=== PATIENT | female | born 1965 | race Hispanic/Latino ===

== ENCOUNTER 2018-06-07 21:34 | Emergency (ER) | payer OTHER ==
[2018-06-08 00:01] LABS: Absolute Lymphocytes (CBC) 3.8 K/uL (0.7-4.9); Absolute Monocytes 0.6 K/uL (0.1-1.3); Basophils % 0.9 % (0-1.3); Eosinophils % 1.1 % (0-4.4); Hematocrit 39.1 % (36.0-45.0); Lymphocytes % 43.9 % (15.3-44.8); MCH 29.2 pg (27.0-35.0); MCV 86.3 fL (80-100); MPV 9.1 fL (7.6-11.3); Monocytes % 7.4 % (3.3-12.3); RBC Red Blood Cell Count 4.52 M/uL (3.86-4.86)
[2018-06-08] MEDS ORDERED: LORAZEPAM 1 MG TABLET ONE (00:07)
[2018-06-08] MEDS ORDERED: ACETAMINOPHEN 500 MG TAB ONE (00:08)
[2018-06-08] MEDS ORDERED: METOCLOPRAMIDE 10 MG/2mL INJ ONE (00:08)
[2018-06-08] MEDS ORDERED: NA CHLORIDE 0.9% 1,000 ML ONE (00:08)
[2018-06-08 00:18] LABS: ALT/SGPT 22 U/L (12-78); AST/SGOT 14 U/L (15-37); Albumin 3.7 g/dL (3.4-5.0); Alkaline Phosphatase 80 U/L (45-117); BUN Blood Urea Nitrogen 12 mg/dL (7-18); Bicarbonate 27 mmol/L (21-32); Bilirubin Direct < 0.1 mg/dL (0-0.2); Bilirubin Total 0.2 mg/dL (0.2-1.0); Glucose Level 111 mg/dL (74-106); Lipase 107 U/L (73-393); Potassium 3.4 mmol/L (3.5-5.1); Protein, Total 7.3 g/dL (6.4-8.2); Sodium Level 141 mmol/L (136-145)
--- NOTE | 2018-06-08 00:43 | ER ---
Nurse's Notes [facility] Name: Sharon Tobias Age: 52 yrs Sex: Female : 1965 Arrival Date: 06/07/2018 Time: 21:37 Bed 4 Private MD: Adrien Hightower B Diagnosis: Elevated blood-pressure reading, without diagnosis of hypertension Presentation: 06/07 21:58 Presenting complaint: Patient states: Lightheadedness all day long, reports that she aj1 took her blood pressure earlier today and it was 165/100, so she took her blood pressure a little later and it was still high. Reports that she has been feeling a lot of pressure in her head and in the back of her neck. Transition of care: patient was not received from another setting of care. Onset of symptoms was June 07, 2018. Risk Assessment: Do you want to hurt yourself or someone else? Patient reports no desire to harm self or others. Initial Sepsis Screen: Does the patient meet any 2 criteria? No. Patient's initial sepsis screen is negative. Does the patient have a suspected source of infection? No. Patient's initial sepsis screen is negative. Care prior to arrival: None. 21:58 Method Of Arrival: Ambulatory aj 21:58 Acuity: EJ 3 aj1 Triage Assessment: 22:01 General: Appears in no apparent distress. comfortable, Behavior is calm, cooperative, aj1 appropriate for age. Pain: Complains of pain in scalp and neck Pain currently is 2 out of 10 on a pain scale. Neuro: Level of Consciousness is awake, alert, obeys commands, Oriented to person, place, time, situation, Gait is steady, Speech is normal, Facial symmetry appears normal, Reports dizziness, headache. Cardiovascular: Patient's skin is warm and dry. Respiratory: Airway is patent Respiratory effort is even, unlabored, Respiratory pattern is regular, symmetrical. 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 - Social history:: Smoking status: Patient/guardian denies using tobacco, Patient/guardian denies using alcohol, street drugs, The patient lives with family. - Ebola Screening: : Patient denies travel to an Ebola-affected area in the 21 days before illness onset. - Family history:: not pertinent. Screenin:26 Abuse screen: Denies threats or abuse. Nutritional screening: No deficits noted. bb Tuberculosis screening: No symptoms or risk factors identified. Fall Risk None identified. Assessment: 23:26 General: Appears in no apparent distress. well groomed, Behavior is calm, cooperative. bb Neuro: Level of Consciousness is awake, alert, obeys commands, Oriented to person, place, time, situation. Cardiovascular: Reports since high blood pressure and headache with palpitations Heart tones S1 S2 present Capillary refill < 3 seconds Patient's skin is warm and dry. Pulses are all present. Edema is absent. Respiratory: Airway is patent Respiratory effort is even, unlabored, Respiratory pattern is regular, Breath sounds are clear bilaterally. GI: No deficits noted. No signs and/or symptoms were reported involving the gastrointestinal system. Derm: Skin is pink, warm \T\ dry. Musculoskeletal: Circulation, motion, and sensation intact. 06/08 01:11 Reassessment: Patient and/or family updated on plan of care and expected duration. Pain bb level reassessed. Patient is alert, oriented x 3, equal unlabored respirations, skin warm/dry/pink. pt states she is feeling better verbalized understanding of and agrees to plan of care discharge instructions given pt ambulated with steady gait to exit accompanied by spouse. Vital Signs: 06/07 22:01 BP 184 / 95; Pulse 62; Resp 18; Temp 98.7; Pulse Ox 99% on R/A; Weight 67.13 kg (R); aj1 Height 5 ft. 3 in. (160.02 cm) (R); Pain 2/10; 23:26 BP 162 / 93; Pulse 62; Resp 12 S; Pulse Ox 100% on R/A; bb 06/08 01:12 BP 140 / 85; Pulse 71; Resp 16 S; Temp 97.5(O); Pulse Ox 100% on R/A; Pain 0/10; bb 06/07 22:01 Body Mass Index 26.22 (67.13 kg, 160.02 cm) aj1 ED Course: 06/07 21:37 Patient arrived in ED. es 21:38 Adrien Hightower MD is Private Physician. es 22:00 Triage completed. aj1 22:02 Arm band placed on Patient placed in waiting room, Patient notified of wait time. aj1 23:16 Liz Mendez MD is Attending Physician. ma2 23:26 Kathi Pierce, RN is Primary Nurse. bb 23:26 Patient has correct armband on for positive identification. Placed in gown. Bed in low bb position. Call light in reach. Side rails up X 1. Adult w/ patient. 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 Pulse ox on. NIBP on. Warm blanket given. 23:52 Initial lab(s) drawn, by me, sent to lab. Missed attempt(s): 22 gauge in left lp1 antecubital area. 23:55 Inserted saline lock: in right antecubital area, using aseptic technique. Blood ds4 collected. 23:58 Lipase Sent. ds4 23:58 Basic Metabolic Panel Sent. ds4 23:58 Hepatic Function Sent. ds4 23:58 CBC with Diff Sent. ds4 12 00:[address] via wheelchair. kw1 00:23 CT Head Brain wo Cont In Process Unspecified. EDMS 00:24 CT completed. Patient tolerated procedure well. Patient moved back from CT. kw1 01:14 No provider procedures requiring assistance completed. IV discontinued, intact, bb bleeding controlled, No redness/swelling at site. Pressure dressing applied. Administered Medications: 00:05 Drug: NS 0.9% 1000 ml Route: IV; Rate: 1 bolus; Site: right antecubital; bb 01:12 Follow up: IV Status: Completed infusion; IV Intake: 1000ml bb 00:05 Drug: Reglan 10 mg Route: IVP; Site: right antecubital; bb 01:13 Follow up: Response: No adverse reaction bb 00:05 Drug: Tylenol 1000 mg Route: PO; bb 01:13 Follow up: Response: No adverse reaction bb 00:05 Drug: Ativan 1 mg Route: PO; bb 01:13 Follow up: Response: No adverse reaction bb Intake: 01:12 IV: 1000ml; Total: 1000ml. bb Outcome: 00:42 Discharge ordered by . ma2 01:14 Discharged to home ambulatory, with family. bb 01:14 Condition: stable 01:14 Discharge instructions given to patient, Instructed on discharge instructions, follow up and referral plans. medication usage, Demonstrated understanding of instructions, follow-up care, medications, Prescriptions given X 2. 01:14 Patient left the ED. bb Signatures: Dispatcher [employer] EDJennifer Ren RN RN aj1 Brandy Amaya Brenda, RN RN bb Faith Post RN RN lp1 Reymundo Marrero ds4 Jayla Rivers kw1 Liz Mendez MD MD ma2 Corrections: (The following items were deleted from the chart) 00:21 06/07 23:58 Creatinine for Radiology+C.LAB.BRZ drawn and sent. ds4 EDMS
--- NOTE | 2018-06-08 00:43 | EDPHYS ---
Physician Documentation [facility] Name: Sharon Tobias Age: 52 yrs Sex: Female : 1965 Arrival Date: 06/07/2018 Time: 21:37 Bed 4 Private MD: Adrien Hightower B ED Physician Liz Mendez HPI: 06/08 00:01 This 52 yrs old Female presents to ER via Ambulatory with complaints of High ma2 Blood Pressure. 00:01 The patient has elevated blood pressure and discovered this at home. Onset: The ma2 symptoms/episode began/occurred just prior to arrival. Associated signs and symptoms: Pertinent positives: anxiety, Pertinent negatives: chest pain, dizziness, dyspnea, headache, lightheadedness, nausea, visual changes, vomiting, weakness. Severity of symptoms: At its worst the blood pressure was moderate, in the emergency department the blood pressure is improved. The patient has not experienced similar symptoms in the past. 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 - Social history:: Smoking status: Patient/guardian denies using tobacco, Patient/guardian denies using alcohol, street drugs, The patient lives with family. - Ebola Screening: : Patient denies travel to an Ebola-affected area in the 21 days before illness onset. - Family history:: not pertinent. ROS: 06/08 00:01 Constitutional: Negative for fever, chills, and weight loss, Cardiovascular: Negative ma2 for chest pain, palpitations, and edema, Respiratory: Negative for shortness of breath, cough, wheezing, and pleuritic chest pain, Abdomen/GI: Negative for abdominal pain, nausea, diarrhea, and constipation, MS/Extremity: Negative for injury and deformity. Psych: Positive for anxiety, Negative for depression, alcohol dependence, auditory hallucinations. All other systems are negative. Exam: 00:01 Constitutional: This is a well developed, well nourished patient who is awake, alert, ma2 and in no acute distress. Head/Face: Normocephalic, atraumatic. Chest/axilla: Normal chest wall appearance and motion. Nontender with no deformity. No lesions are appreciated. Cardiovascular: Regular rate and rhythm with a normal S1 and S2. No gallops, murmurs, or rubs. Normal PMI, no JVD. No pulse deficits. Respiratory: Lungs have equal breath sounds bilaterally, clear to auscultation and percussion. No rales, rhonchi or wheezes noted. No increased work of breathing, no retractions or nasal flaring. Abdomen/GI: Soft, non-tender, with normal bowel sounds. No distension or tympany. No guarding or rebound. No evidence of tenderness throughout. MS/ Extremity: Pulses equal, no cyanosis. Neurovascular intact. Full, normal range of motion. Neuro: Awake and alert, GCS 15, oriented to person, place, time, and situation. Cranial nerves II-XII grossly intact. Motor strength 5/5 in all extremities. Sensory grossly intact. Cerebellar exam normal. Normal gait. Vital Signs: 06/07 22:01 BP 184 / 95; Pulse 62; Resp 18; Temp 98.7; Pulse Ox 99% on R/A; Weight 67.13 kg (R); aj1 Height 5 ft. 3 in. (160.02 cm) (R); Pain 2/10; 23:26 BP 162 / 93; Pulse 62; Resp 12 S; Pulse Ox 100% on R/A; bb 06/08 01:12 BP 140 / 85; Pulse 71; Resp 16 S; Temp 97.5(O); Pulse Ox 100% on R/A; Pain 0/10; bb 06/07 22:01 Body Mass Index 26.22 (67.13 kg, 160.02 cm) aj1 MDM: 06/07 23:17 Patient medically screened. ma2 06/08 00:01 Differential diagnosis: intracerebral hemorrhage, htn, anxiety. ma2 00:41 Data reviewed: vital signs, nurses notes, lab test result(s). Counseling: I had a ma2 detailed discussion with the patient and/or guardian regarding: the historical points, exam findings, and any diagnostic results supporting the discharge/admit diagnosis, the presence of at least one elevated blood pressure reading (>120/80) during this emergency department visit, the need for outpatient follow up. Response to treatment: the patient's symptoms have markedly improved after treatment. 06/07 23:36 Order name: Basic Metabolic Panel; Complete Time: 00:41 sc2 06/07 23:36 Order name: CBC with Diff; Complete Time: 00:41 sc2 06/07 23:36 Order name: Hepatic Function; Complete Time: 00:41 sc2 06/07 23:36 Order name: Lipase; Complete Time: 00:41 sc2 06/07 23:36 Order name: CT Head Brain wo Cont [facility] 06/07 23:36 Order name: IV Saline Lock; Complete Time: 23:58 sc2 06/07 23:36 Order name: Labs collected and sent; Complete Time: 23:58 ma2 Administered Medications: 00:05 Drug: NS 0.9% 1000 ml Route: IV; Rate: 1 bolus; Site: right antecubital; bb 01:12 Follow up: IV Status: Completed infusion; IV Intake: 1000ml bb 00:05 Drug: Reglan 10 mg Route: IVP; Site: right antecubital; bb 01:13 Follow up: Response: No adverse reaction bb 00:05 Drug: Tylenol 1000 mg Route: PO; bb 01:13 Follow up: Response: No adverse reaction bb 00:05 Drug: Ativan 1 mg Route: PO; bb 01:13 Follow up: Response: No adverse reaction bb Disposition: 06/08/18 00:42 Discharged to Home. Impression: Elevated blood-pressure reading, without diagnosis of hypertension. - Condition is Stable. - Discharge Instructions: Hypertension, [id number], How to Take Your Blood Pressure, Lqpt-[id number], DASH Eating Plan, Form - Blood Pressure Record Sheet. - Prescriptions for Ativan 0.5 mg Oral Tablet - take 1 tablet by ORAL route every 8 hours As needed; 20 tablet. - Medication Reconciliation Form, Thank You Letter, Antibiotic Education, Prescription Opioid Use form. - Follow up: Private Physician; When: Tomorrow; Reason: Continuance of care. Signatures: Dispatcher [employer] Jennifer Garrett RN RN aj1 Kathi Pierce RN RN bb Liz Mendez MD MD ma2 Corrections: (The following items were deleted from the chart) 00:21 06/07 23:38 Creatinine for Radiology+C.LAB.BRZ ordered. CECYAL JEANIE 06/08 01:14 00:42 06/08/2018 00:42 Discharged to Home. Impression: Elevated blood-pressure reading, bb without diagnosis of hypertension. Condition is Stable. Prescriptions for Ativan 0.5 mg Oral Tablet - take 1 tablet by ORAL route every 8 hours As needed; 20 tablet, Hydrochlorothiazide 12.5 mg Oral Tablet - take 1 tablet by ORAL route once daily; 30 tablet. and Forms are Medication Reconciliation Form, Thank You Letter, Antibiotic Education, Prescription Opioid Use. Follow up: Private Physician; When: Tomorrow; Reason: Continuance of care. ma2
--- NOTE | 2018-06-08 07:32 | RAD REPORT ---
EXAM DESCRIPTION: CT - Head Brain Wo Cont - 06/08/2018 2:20 am CLINICAL HISTORY: Headache and dizziness COMPARISON: None. TECHNIQUE: Computed axial tomography of the head was obtained. IV contrast was not requested.Prelimi nary report generated by [employer] and reviewed prior to dictation All CT scans are performed using dose optimization technique as appropriate and may include automated exposure control or mA/KV adjustment according to patient size. FINDINGS: An intracranial bleed is not seen . The ventricles are normal in caliber. No extra-axial fluid collection is noted. 3 millimeter calcification within the region of the left ce rebellar peduncle may be related to prior infection or cavernous angioma Fluid within the sinuses/ mastoids is not seen. IMPRESSION: No acute intracranial abnormality is seen. If patient's symptoms persist MRI of the bra in would be recommended.
== END 2018-06-08 01:14 | disposition home or self-care (01) ==
LOC: ER 21:34
DX: R03.0 Elevated blood-pressure reading, without diagnosis of hypertension (principal)
CPT/HCPCS: 36415; 70450; 80048; 80076; 83690; 85025; 96361; 96374; 99285; J2765; J7030

== ENCOUNTER 2018-10-01 18:16 | Emergency (ER) | payer OTHER ==
[2018-10-01 20:22] LABS: Absolute Lymphocytes (CBC) 2.5 K/uL (0.7-4.9); Absolute Monocytes 0.7 K/uL (0.1-1.3); Absolute Neutrophil 8.4 K/uL (1.8-8.0); Basophils % 0.9 % (0-1.3); Hematocrit 37.5 % (36.0-45.0); Lymphocytes % 21.4 % (15.3-44.8); Monocytes % 5.8 % (3.3-12.3)
--- NOTE | 2018-10-01 20:34 | RAD REPORT ---
EXAM DESCRIPTION: RAD - Chest Single View - 10/01/2018 8:29 pm CLINICAL HISTORY: Syncope, cough COMPARISON: July 2017 TECHNIQUE: AP portable chest image was obtained 2025 hours . FINDINGS: Lungs are underinflated. Increased opacification in the left base could be shallow inspira tion atelectasis or early infiltrate. No failure or volume overload. Heart and vasculature are normal . No measurable pleural effusion and no pneumothorax. No acute bony abnormality seen. No acute aortic findings suspected. IMPRESSION: Infiltrate versus atelectasis left lung base.
[2018-10-01] MEDS ORDERED: NA CHLORIDE 0.9% 1,000 ML ONE (20:35)
[2018-10-01 20:44] LABS: ALT/SGPT 46 U/L (12-78); AST/SGOT 33 U/L (15-37); Albumin 3.7 g/dL (3.4-5.0); Alkaline Phosphatase 95 U/L (45-117); BUN Blood Urea Nitrogen 21 mg/dL (7-18); Bicarbonate 27 mmol/L (21-32); Bilirubin Direct < 0.1 mg/dL (0-0.2); Bilirubin Total 0.2 mg/dL (0.2-1.0); Glucose Level 120 mg/dL (74-106); Magnesium 2.3 mg/dL (1.8-2.4); Potassium 3.6 mmol/L (3.5-5.1); Protein, Total 7.1 g/dL (6.4-8.2); Sodium Level 141 mmol/L (136-145); Troponin (Emerg Dept Use Only) < 0.02 ng/mL (0.0-0.045)
--- NOTE | 2018-10-01 21:54 | EDPHYS ---
Physician Documentation [facility] Name: Sharon Tobias Age: 52 yrs Sex: Female : 1965 Arrival Date: 10/01/2018 Time: 18:25 Bed 8 Private MD: ED Physician Mk Silveira HPI: 10/01 19:56 This 52 yrs old Female presents to ER via EMS with complaints of Near Syncope. domonique 19:56 The patient has experienced near-syncope. Onset: The symptoms/episode began/occurred domonique just prior to arrival. Duration: This was a single episode. Context: the episode(s) was witnessed, by a bystander. Associated injury: The patient did not suffer any apparent associated injury. Associated signs and symptoms: The patient has no apparent associated signs or symptoms. Current symptoms: Currently, the patient is not experiencing any symptoms. The patient has not experienced similar symptoms in the past. 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 - Social history:: Smoking status: Patient/guardian denies using tobacco. - Ebola Screening: : Patient negative for fever greater than or equal to 101.5 degrees Fahrenheit, and additional compatible Ebola Virus Disease symptoms Patient denies exposure to infectious person Patient denies travel to an Ebola-affected area in the 21 days before illness onset No symptoms or risks identified at this time. - Family history:: not pertinent. ROS: 19:56 Constitutional: Negative for fever, chills, and weight loss, Eyes: Negative for injury, domonique pain, redness, and discharge, ENT: Negative for injury, pain, and discharge, Neck: Negative for injury, pain, and swelling, Cardiovascular: Negative for chest pain, palpitations, and edema, Respiratory: Negative for shortness of breath, cough, wheezing, and pleuritic chest pain, Abdomen/GI: Negative for abdominal pain, nausea, vomiting, diarrhea, and constipation, Back: Negative for injury and pain, : Negative for injury, bleeding, discharge, and swelling, MS/Extremity: Negative for injury and deformity, Skin: Negative for injury, rash, and discoloration, Psych: Negative for depression, anxiety, suicide ideation, homicidal ideation, and hallucinations, Allergy/Immunology: Negative for hives, rash, and allergies, Endocrine: Negative for neck swelling, polydipsia, polyuria, polyphagia, and marked weight changes, Hematologic/Lymphatic: Negative for swollen nodes, abnormal bleeding, and unusual bruising. 19:56 Neuro: Positive for syncope, near syncope. Exam: 19:56 Constitutional: This is a well developed, well nourished patient who is awake, alert, domonique and in no acute distress. Head/Face: Normocephalic, atraumatic. Eyes: Pupils equal round and reactive to light, extra-ocular motions intact. Lids and lashes normal. Conjunctiva and sclera are non-icteric and not injected. Cornea within normal limits. Periorbital areas with no swelling, redness, or edema. ENT: Nares patent. No nasal discharge, no septal abnormalities noted. Tympanic membranes are normal and external auditory canals are clear. Oropharynx with no redness, swelling, or masses, exudates, or evidence of obstruction, uvula midline. Mucous membranes moist. Neck: Trachea midline, no thyromegaly or masses palpated, and no cervical lymphadenopathy. Supple, full range of motion without nuchal rigidity, or vertebral point tenderness. No Meningismus. Chest/axilla: Normal chest wall appearance and motion. Nontender with no deformity. No lesions are appreciated. Cardiovascular: Regular rate and rhythm with a normal S1 and S2. No gallops, murmurs, or rubs. Normal PMI, no JVD. No pulse deficits. Respiratory: Lungs have equal breath sounds bilaterally, clear to auscultation and percussion. No rales, rhonchi or wheezes noted. No increased work of breathing, no retractions or nasal flaring. Abdomen/GI: Soft, non-tender, with normal bowel sounds. No distension or tympany. No guarding or rebound. No evidence of tenderness throughout. Back: No spinal tenderness. No costovertebral tenderness. Full range of motion. Skin: Warm, dry with normal turgor. Normal color with no rashes, no lesions, and no evidence of cellulitis. MS/ Extremity: Pulses equal, no cyanosis. Neurovascular intact. Full, normal range of motion. Neuro: Awake and alert, GCS 15, oriented to person, place, time, and situation. Cranial nerves II-XII grossly intact. Motor strength 5/5 in all extremities. Sensory grossly intact. Cerebellar exam normal. Normal gait. Psych: Awake, alert, with orientation to person, place and time. Behavior, mood, and affect are within normal limits. 19:56 Cardiovascular: Rate: normal, Rhythm: regular, Pulses: Pulses are 4+ in bilateral radial, brachial, femoral, popliteal, posterior tibial and and dorsalis pedis arteries.. Heart sounds: normal, normal S1and S2, no S3 or S4, no murmur, no rub, no gallop, Edema: is not appreciated, JVD: is not appreciated. 21:16 Musculoskeletal/extremity: DVT Exam: No signs of deep vein thrombosis. no pain, no domonique swelling, no tenderness, negative Homans' sign noted on exam, no appreciated bluish discoloration, no erythema, no increased warmth. Vital Signs: 18:27 BP 128 / 80; Pulse 65; Resp 14; Temp 98; Pulse Ox 100% ; Weight 70.31 kg; Height 5 ft. bp 3 in. (160.02 cm); 19:17 BP 122 / 77; Pulse 74; Resp 16; Pulse Ox 96% on R/A; Pain 0/10; aa1 20:01 BP 141 / 83 Supine; Pulse 66; mt 20:01 BP 147 / 81 Sitting; Pulse 68; mt 20:01 BP 146 / 94 Standing; Pulse 70; mt 20:35 BP 128 / 82; Pulse 61; Resp 20; Pulse Ox 100% on R/A; mt 21:32 BP 136 / 72; Pulse 72; Resp 16; Pulse Ox 98% on R/A; aa1 22:34 BP 129 / 76; Pulse 67; Resp 16; Pulse Ox 96% on R/A; Pain 0/10; aa1 18:27 Body Mass Index 27.46 (70.31 kg, 160.02 cm) bp MDM: 19:37 Patient medically screened. [facility] 20:11 Data reviewed: vital signs, nurses notes, lab test result(s), EKG, radiologic studies, domonique plain films. 10/01 19:56 Order name: Basic Metabolic Panel; Complete Time: 20:54 [facility] 10/01 19:56 Order name: CBC with Diff; Complete Time: 20:54 [facility] 10/01 19:56 Order name: LFT's; Complete Time: 20:54 [facility] 10/01 19:56 Order name: Magnesium; Complete Time: 20:54 [facility] 10/01 19:56 Order name: Troponin (emerg Dept Use Only); Complete Time: 20:54 [facility] 10/01 19:56 Order name: XRAY Chest (1 view); Complete Time: 20:54 10/01 19:56 Order name: EKG; Complete Time: 19:56 [facility] 10/01 19:56 Order name: Cardiac monitoring; Complete Time: 20:12 [facility] 10/01 19:56 Order name: EKG - Nurse/Tech; Complete Time: 20:12 [facility] 10/01 19:56 Order name: IV Saline Lock; Complete Time: 20:12 [facility] 10/01 19:56 Order name: Labs collected and sent; Complete Time: 20:12 [facility] 10/01 20:55 Order name: INCENTIVE SPIROMETRY 10/01 20:55 Order name: CT Chest For PE Angio 10/01 19:56 Order name: O2 Per Protocol; Complete Time: 20:12 [facility] 10/01 19:56 Order name: O2 Sat Monitoring; Complete Time: 20:12 [facility] 10/01 19:56 Order name: Orthostatics; Complete Time: 20:02 [facility] Administered Medications: 20:30 Drug: NS 0.9% 1000 ml Route: IV; Rate: 1 bolus; Site: right antecubital; aa1 21:15 Follow up: IV Status: Completed infusion; IV Intake: 1000ml aa1 Disposition: 10/01/18 21:53 Discharged to Home. Impression: Syncope and collapse. - Condition is Stable. - Discharge Instructions: Near-Syncope, Weakness, Near-Syncope, [id number], Syncope, Gecs-bl-Rxil, Weakness, Muwj-li-Xjuo, Vasovagal Syncope, Adult. - Medication Reconciliation Form, Thank You Letter, Antibiotic Education, Prescription Opioid Use form. - Follow up: Private Physician; When: 2 - 3 days; Reason: Recheck today's complaints, Continuance of care, Re-evaluation by your physician. Follow up: Rajat Guerrier; When: 2 - 3 days; Reason: Recheck today's complaints, Continuance of care, Re-evaluation by your physician. - Problem is new. - Symptoms have improved. Signatures: Dispatcher [employer] EDVicky Romero RN RN aa1 Mk Silveira MD MD cha Peltier, Brian RN RN bp Corrections: (The following items were deleted from the chart) 22:36 21:53 10/01/2018 21:53 Discharged to Home. Impression: Syncope and collapse. Condition aa1 is Stable. Discharge Instructions: Near-Syncope, Weakness, Near-Syncope, Ftmf-[id number], Syncope, Tkmr-[id number], Weakness, Otwa-hb-[id number], Vasovagal Syncope, Adult. Forms are Medication Reconciliation Form, Thank You Letter, Antibiotic Education, Prescription Opioid Use. Follow up: Private Physician; When: 2 - 3 days; Reason: Recheck today's complaints, Continuance of care, Re-evaluation by your physician. Follow up: Rajat Guerrier; When: 2 - 3 days; Reason: Recheck today's complaints, Continuance of care, Re-evaluation by your physician. Problem is new. Symptoms have improved. domonique
--- NOTE | 2018-10-01 21:54 | ER ---
Nurse's Notes [facility] Name: Sharon Tobias Age: 52 yrs Sex: Female : 1965 Arrival Date: 10/01/2018 Time: 18:25 Bed 8 Private MD: Diagnosis: Syncope and collapse Presentation: 10/01 18:25 Presenting complaint: EMS states: NEAR-SYNCOPE WHILE WORKING OUT AT GYM. Transition of bp care: patient was not received from another setting of care. Onset of symptoms was October 01, 2018 at 18:00. Risk Assessment: Do you want to hurt yourself or someone else? Patient reports no desire to harm self or others. Initial Sepsis Screen: Does the patient meet any 2 criteria? No. Patient's initial sepsis screen is negative. Does the patient have a suspected source of infection? No. Patient's initial sepsis screen is negative. Care prior to arrival: Medication(s) given: Normal saline infusion, 1000 mL, IV initiated. 20 GA, in the right antecubital area. 18:25 Method Of Arrival: EMS: [facility] bp 18:25 Acuity: EJ 3 bp Triage Assessment: 18:27 General: Appears in no apparent distress. comfortable, Behavior is calm, cooperative, bp appropriate for age. Pain: Denies pain. EENT: No deficits noted. Neuro: Level of Consciousness is awake, alert, obeys commands, Oriented to person, place, time, situation, Appropriate for age. Cardiovascular: No deficits noted. Rhythm is sinus rhythm. Respiratory: Airway is patent Respiratory effort is even, unlabored, Respiratory pattern is regular, symmetrical. GI: No signs and/or symptoms were reported involving the gastrointestinal system. : No signs and/or symptoms were reported regarding the genitourinary system. Derm: No deficits noted. Musculoskeletal: Circulation, motion, and sensation intact. Range of motion: intact in all extremities. PACU NURSE: 18:27 LMP N/A - Post-menopause bp Historical: - Allergies: 18:27 No Known Allergies; bp - Home Meds: 18:27 losartan oral oral [Active]; Omeprazole Oral [Active]; bp - PMHx: 18:27 Hypertension; Esophageal problems.; bp - Immunization history:: Adult Immunizations up to date. - Social history:: Smoking status: Patient/guardian denies using tobacco. - Ebola Screening: : Patient negative for fever greater than or equal to 101.5 degrees Fahrenheit, and additional compatible Ebola Virus Disease symptoms Patient denies exposure to infectious person Patient denies travel to an Ebola-affected area in the 21 days before illness onset No symptoms or risks identified at this time. - Family history:: not pertinent. Screenin:32 Abuse screen: Denies threats or abuse. Denies injuries from another. Nutritional bp screening: No deficits noted. Tuberculosis screening: No symptoms or risk factors identified. Fall Risk None identified. Assessment: 18:31 General: Appears in no apparent distress. comfortable, Behavior is calm, cooperative, bp appropriate for age. General: SEE TRIAGE NOTE. Pain: Denies pain. 19:17 Reassessment: Patient appears in no apparent distress at this time. Patient and/or aa1 family updated on plan of care and expected duration. Pain level reassessed. Patient is alert, oriented x 3, equal unlabored respirations, skin warm/dry/pink. Awaiting initial assessment from ER provider. 20:30 Reassessment: Patient appears in no apparent distress at this time. Patient and/or aa1 family updated on plan of care and expected duration. Pain level reassessed. Patient is alert, oriented x 3, equal unlabored respirations, skin warm/dry/pink. Awaiting lab \T\ x-ray results. 21:32 Reassessment: Patient appears in no apparent distress at this time. Patient and/or aa1 family updated on plan of care and expected duration. Pain level reassessed. Patient is alert, oriented x 3, equal unlabored respirations, skin warm/dry/pink. Awaiting provider reassessment. 22:34 Reassessment: Patient appears in no apparent distress at this time. Patient is alert, aa1 oriented x 3, equal unlabored respirations, skin warm/dry/pink. Discussed d/c \T\ f/u instructions with pt \T\ spouse; denies questions or concerns at this time. Amb to lobby with steady gait Patient denies pain at this time. Patient states feeling better. Vital Signs: 18:27 BP 128 / 80; Pulse 65; Resp 14; Temp 98; Pulse Ox 100% ; Weight 70.31 kg; Height 5 ft. bp 3 in. (160.02 cm); 19:17 BP 122 / 77; Pulse 74; Resp 16; Pulse Ox 96% on R/A; Pain 0/10; aa1 20:01 BP 141 / 83 Supine; Pulse 66; mt 20:01 BP 147 / 81 Sitting; Pulse 68; mt 20:01 BP 146 / 94 Standing; Pulse 70; mt 20:35 BP 128 / 82; Pulse 61; Resp 20; Pulse Ox 100% on R/A; mt 21:32 BP 136 / 72; Pulse 72; Resp 16; Pulse Ox 98% on R/A; aa1 22:34 BP 129 / 76; Pulse 67; Resp 16; Pulse Ox 96% on R/A; Pain 0/10; aa1 18:27 Body Mass Index 27.46 (70.31 kg, 160.02 cm) bp ED Course: 18:25 Patient arrived in ED. bp 18:26 Triage completed. bp 18:27 Arm band placed on. bp 18:32 Patient has correct armband on for positive identification. Allergy band placed. Bed in bp low position. Call light in reach. Side rails up X2. Adult w/ patient. 18:32 Maintain EMS IV. Dressing intact. Good blood return noted. Site clean \T\ dry. Gauge \T\ bp site: 20G R AC. 18:43 Marky Schaffer, ILEANA is Primary Nurse. bp 19:37 Mk Silveira MD is Attending Physician. domonique 20:13 EKG done, by ED staff, reviewed by Mk Silveira MD. mt 20:27 X-ray completed. Portable x-ray completed in exam room. Patient tolerated procedure ls3 well. 20:28 XRAY Chest (1 view) In Process Unspecified. EDMS 20:[address] 2 21:15 CT completed. Patient tolerated procedure well. eh 21:16 Patient moved back from CT. eh 21:24 CT Chest For PE Angio In Process Unspecified. EDMS 21:53 Rajat Guerrier MD is Referral Physician. domonique 22:34 No provider procedures requiring assistance completed. IV discontinued, intact, aa1 bleeding controlled, No redness/swelling at site. Pressure dressing applied. Administered Medications: 20:30 Drug: NS 0.9% 1000 ml Route: IV; Rate: 1 bolus; Site: right antecubital; aa1 21:15 Follow up: IV Status: Completed infusion; IV Intake: 1000ml aa1 Intake: 21:15 IV: 1000ml; Total: 1000ml. aa1 Outcome: 21:53 Discharge ordered by . domonique 22:34 Discharged to home ambulatory, with significant other. aa1 22:34 Condition: good 22:34 Discharge instructions given to patient, significant other, Instructed on discharge instructions, follow up and referral plans. Demonstrated understanding of instructions, follow-up care. 22:36 Patient left the ED. aa1 Signatures: Dispatcher [employer] EDMS Vicky Duarte, RN RN aa1 Mk Silveira MD MD cha Hagler, Florence Eng Sulma Quijano mt, Brian, ILEANA RN Samson Palacios 3
--- NOTE | 2018-10-02 08:19 | EKG ---
Test Date: 2018-10-01 Test Time: 20:10:25 Restaurant Crew Member: HORTENSIA MEASUREMENT RESULTS: Intervals: Rate: 58 CO: 156 QRSD: 66 QT: 400 QTc: 392 [place]: P: 55 CO: 156 QRS: 20 T: 47 INTERPRETIVE STATEMENTS: Sinus bradycardia Possible Left atrial enlargement Nonspecific T wave abnormality Abnormal ECG Compared to ECG 08/07/2017 00:02:17 T-wave abnormality now present Sinus rhythm no longer present Myocardial infarct finding no longer present Electronically Signed On 10-02-18 07:51:18 CDT by Rajat Guerrier
--- NOTE | 2018-10-02 12:32 | RAD REPORT ---
EXAM DESCRIPTION: Chest For Pe Angio CLINICAL HISTORY: 52 years Female, COUGH COMPARISON: None. TECHNIQUE: 3 mm axial images of the thorax were obtained along with 3 mm coronal and sagittal reform atted images. 5 mm coronal and sagittal MIP images were obtained. This exam was performed according to our departmental dose-optimization program, which includes autom ated exposure control, adjustment of the mA and/or kV according to patient size and/or use of iterati ve reconstruction technique. INTRAVENOUS CONTRAST: Not documented. Please refer to medical record. FINDINGS: LUNG NAVARRO: No active infiltrates. No mass lesions. MEDIASTINAL STRUCTURES: No evidence of aortic aneurysm or dissection. There is no pericardial effusion. There is no adenopathy. PULMONARY ARTERIES: No evidence of pulmonary embolus. PLEURAL SPACE: Normal. AXILLAE: No adenopathy. UPPER ABDOMEN: No significant abnormalities. BONY STRUCTURES: Unremarkable. IMPRESSION: 1. No evidence of pulmonary embolus. 2. No active infiltrates. Electronically signed by: Aakash Bailey MD 10/01/2018 9:38 PM CDT Due to temporary technical issues with the PACS/Fluency reporting system, reports are being signed by the in house radiologist as a courtesy to ensure prompt reporting. The interpreting radiologist is f ully responsible for the content of the report.
== END 2018-10-01 22:36 | disposition home or self-care (01) ==
LOC: ER 18:16
DX: R55 Syncope and collapse (principal); I10 Essential (primary) hypertension; Z79.899 Other long term (current) drug therapy
CPT/HCPCS: 36415; 71045; 71275; 80048; 80076; 83735; 84484; 85025; 93005; 96360; 99285; J7030; Q9967